=== PATIENT | male | born 1940 | race Caucasian/White ===

== ENCOUNTER 2017-11-29 20:04 | Observation (INO) ==
[2017-11-30] MEDS ORDERED: Acetaminophen 325 MG TABLET PO PRN (01:05)
[2017-11-30] MEDS ORDERED: Naloxone 0.4 MG/ML INJ IVP PRN (01:05)
--- NOTE | 2017-11-30 01:55 | Internal Med History&Physical ---
Date of Encounter: 11/30/17 Time of Encounter: 01:00 Internal Medicine - H&P: HPI Chief complaint: Abnormal renal function tests Admitted From: Home Plans for Post Hospital Care: Home History of present illness: Mr. Jo is a 77 year old male sent from oncology office to ER for abnormal renal function tests. Past medical history is significant for prostate cancer. Patient was send from oncology office to ER because of elevated creatinine on lab results. Patient has within normal limit creatinine level previously but at this time creatinine level is 3.38. Patient denies any discomfort including dysuria, burning on urination, or difficulty urination. In the emergency room, abdominal CT has been done, shows no obstructive uropathy or urinary retention. Patient was considered dehydration and was given IV fluid. Patient has good urine output. Patient was transferred to our hospital for close monitoring. Past Med Surg Social Fam HX - Past Medical History Medical history: cancer, hypertension Psychiatric history: no psych history - Social History Smoking Status: Former smoker Smokeless Tobacco Status: Yes (chewing tobacco) Alcohol use: none Drug use: none - Family History Father Hx Family Cardiac Disorders: Yes Mother Hx Family Cancer: Yes Internal Medicine - H&P: Meds Bicalutamide [Casodex] 50 mg PO DAILY 04/11/17 [History] Lisinopril-HCTZ 20-12.5 [Prinzide 20-12.5] 1 tab PO DAILY 09/05/17 [History] 3 Allergy/AdvReac Type Severity Reaction Status Date / Time No Known Allergies Allergy Verified 11/29/17 15:06 All Systems PM: A 10-system review of systems was performed and is negative for pertinent findings except as documented above in the HPI. - Constitutional General appearance: Present: A&O X 3, no acute distress, answers questions appropriately - Head Head exam: Present: atraumatic, normocephalic - Eye Eye exam: Present: PERRL, conjuntiva pink, sclera anicteric Pupils: Present: PERRL - Neck Neck exam general surgery: Present: supple, trachea midline. Absent: lymphadenopathy - Respiratory Respiratory exam: Present: CTAB. Absent: accessory muscle use, rales, rhonchi, wheezes - Cardiovascular Cardiovascular exam: Present: RRR, +S1, +S2. Absent: diastolic murmur, gallop, rubs, systolic murmur - GI/Abdominal GI/Abdominal exam: Present: normal bowel sounds, soft, no peritoneal signs. Absent: distended, tenderness - Extremities Exam Extremities exam: Present: warm, radial pulses palpable and symmetrical. Absent : calf tenderness, cyanotic, pedal edema - Neurological Exam Neurological exam: Present: CN II-XII intact, oriented X3, no focal deficits. Absent: pronater drift, facial droop, speech deficit - Skin Skin exam: Present: dry, intact - Assessment and plan (1) Acute renal failure Current Visit: No Status: Acute Assessment and plan: Patient has acute renal failure, etiology is undetermined. Most likely due to dehydration. We will continue hydrate patient. Closely follow-up renal function. - Check urine creatinine, sodium, potassium, and chloride - Hold and avoid nephrotoxic medication. Patient's blood pressure is not high, will hold lisinopril and hydrochlorothiazide. - If renal dysfunction persisted, consider nephrology consult. Qualifiers: Acute renal failure type: unspecified Qualified Code(s): N17.9 - Acute kidney failure, unspecified (2) Prostate cancer Current Visit: No Status: Acute Assessment and plan: Continue outpatient follow-up with oncology (3) DVT prophylaxis Current Visit: Yes Status: Acute Assessment and plan: Heparin subcutaneously - Time Spent With Patient Total time spent is greater than 50% in coordination of care (as documented) at patient's floor/unit and/or counseling patient: 40 minutes Greater than 35 minutes
[2017-11-30] MEDS: 0.9 % Sodium Chloride 1,000 ML IVC SCH ×2 (02:21→14:16)
[2017-11-30 06:15] LABS: Eosinophils # 0.1 K/mcL (0.0-0.6); Eosinophils % 1.7 %; Hematocrit 31.6 % (37.5-50.1); Hemoglobin 10.7 g/dL (12.9-16.9); Immature Granulocytes % 0.2 % (0-4); Lymphocytes # 1.4 K/mcL (0.6-4.6); Lymphocytes % 35.7 %; Mean Corpuscular HGB Conc 33.9 g/dL (31.6-35.5); Mean Corpuscular Hemoglobin 28.9 pg (28.0-33.3); Mean Corpuscular Volume 85.4 fL (83.0-100.0); Mean Platelet Volume 10.1 fL (9.4-12.4); Monocytes # 0.4 K/mcL (0.0-1.3); Monocytes % 10.2 %; Neutrophils # 2.1 K/mcL (1.6-8.9); Platelet Count 211 K/mcL (140-400); Red Cell Distribution Width 14.1 % (11.5-14.5); Segmented Neutrophils % 51.2 %
[2017-11-30] MEDS: *HR* Heparin 5,000 UNIT/ML VIAL SQ SCH ×2 (06:45→16:34)
[2017-11-30 07:58] LABS: Potassium,Urine 8.3 mEq/L; Sodium, Urine 72.1 mEq/L
--- NOTE | 2017-11-30 17:36 | Event Note ---
Date of Encounter: 11/30/17 Time of Encounter: 11:00 Patient seen by nocturnalist earlier this morning and also by myself. He was sent to the ER due to abnormal renal function tests by oncologist office. Patient found to be in acute renal failure; creatinine slowly improving on IV fluids Will continue to monitor
[2017-12-01] MEDS: *HR* Heparin 5,000 UNIT/ML VIAL SQ SCH (05:35)
[2017-12-01] MEDS: 0.9 % Sodium Chloride 1,000 ML IVC SCH (05:49)
[2017-12-01 10:01] LABS: Basophils % 0.5 %; Eosinophils % 0.5 %; Hematocrit 33.2 % (37.5-50.1); Hemoglobin 10.9 g/dL (12.9-16.9); Immature Granulocytes % 0.3 % (0-4); Lymphocytes % 25.8 %; Mean Corpuscular HGB Conc 32.8 g/dL (31.6-35.5); Mean Corpuscular Hemoglobin 28.3 pg (28.0-33.3); Mean Corpuscular Volume 86.2 fL (83.0-100.0); Mean Platelet Volume 9.7 fL (9.4-12.4); Monocytes # 0.4 K/mcL (0.0-1.3); Monocytes % 9.1 %; Neutrophils # 2.4 K/mcL (1.6-8.9); Platelet Count 197 K/mcL (140-400); Red Blood Count 3.85 M/mcL (4.19-5.50); Red Cell Distribution Width 14.2 % (11.5-14.5); Segmented Neutrophils % 63.8 %
[2017-12-01 10:20] LABS: Calcium 8.6 mg/dL (8.6-10.3); Potassium 4.4 mEq/L (3.5-5.1)
[2017-12-01 11:42] VITALS: BP 99/60
--- NOTE | 2017-12-01 13:30 | Discharge Summary ---
- NOTES TO OUTPATIENT PROVIDER Notes to Outpatient Provider: Patient will need repeat BMP to monitor renal function and 3-5 days Date of Encounter: 12/01/17 Time of Encounter: 11:00 - Discharge Diagnosis (1) Prostate cancer Priority: Secondary Status: Acute (2) Acute renal failure Priority: Primary Status: Acute Qualifiers: Acute renal failure type: unspecified Qualified Code(s): N17.9 - Acute kidney failure, unspecified Hospital course: Patient is a 77-year-old male with past medical history significant for prostate cancer and hypertension who presents to the ER on 11/29/17 due to abnormal labs. Patient was being seen by the hematology/oncologist office and patient was noted to have elevated creatinine on labs so was sent to [facility] for further evaluation. During patients hospital stay he was found to have acute renal failure with a creatinine of 3.90. Patients acute renal failure improved with IV fluids and his creatinine was down to 1.67 on the day of discharge. Patients drew inhibitor/diuretic was held on discharge due to acute renal failure. He is to follow-up with primary care provider for continued monitoring of renal function. - Time Spent with Patient Total time spent providing and/or coordinating discharge services: Less than 30 minutes - Discharge Medications Home Medications: Bicalutamide [Casodex] 50 mg PO DAILY 04/11/17 [History] Allergies/Adverse Reactions: 3 Allergy/AdvReac Type Severity Reaction Status Date / Time No Known Allergies Allergy Verified 11/30/17 10:26 Date of admission: 11/29/17 21:59 Primary care physician: PCP NONE - Constitutional Vitals: Temp Pulse Resp BP Pulse Ox 97.6 F 70 16 99/60 99 12/01/17 11:36 12/01/17 11:36 12/01/17 11:36 12/01/17 11:36 12/01/17 11:36 General appearance: Present: A&O X 3, no acute distress, answers questions appropriately - Respiratory Respiratory exam: Present: CTAB. Absent: accessory muscle use, rales, rhonchi, wheezes - Cardiovascular Cardiovascular exam: Present: RRR, +S1, +S2. Absent: diastolic murmur, gallop, rubs, systolic murmur - Patient Status Disposition: Home, Self-Care - Discharge Instructions Instructions: Acute Kidney Injury (DC) Follow Up With: NONE,PCP [Primary Care Provider] - (Please call and schedule a hospital follow up in 5-7 days with your PCP. If you do not have a PCP please call [phone] to find a physcian. Please make them aware that you would like the doctor to be located in [place]. Thank you!)
== END 2017-12-01 13:46 | disposition home or self-care (01) ==
LOC: 2ANU → SUATTDRO 21:59 → 2ANU 23:28
PROVIDERS: ADMIT Internal Medicine; ATTEND Hospitalist